=== PATIENT | female | born 1990 | race Hispanic/Latino ===

== ENCOUNTER 2018-06-01 17:40 | Emergency (ER) | payer SELFPAY ==
[~2018-06-01] VITALS: Ht 157.5 cm; Wt 95.3 kg
[2018-06-01] MEDS ORDERED: ACETAMINOPHEN 325 MG/10 ML UDC PO STA (18:49)
[2018-06-01] MEDS ORDERED: PENICILLIN G BENZATHINE LA 1.2 MU TBX IM STA (18:50)
[2018-06-01] MEDS ORDERED: DEXAMETHASONE SOD PHOS 10 MG/1 ML VIAL INH ONE (19:00)
[2018-06-01 22:06] VITALS: BP 115/77
== END 2018-06-01 22:15 | disposition home or self-care (01) ==
LOC: RESP 17:40 → ER 22:15
DX: R50.9 Fever, unspecified (principal); R11.0 Nausea; J02.0 Streptococcal pharyngitis
CPT/HCPCS: 99283; J0561; J1100

== ENCOUNTER 2021-03-02 17:53 | Emergency (ER) | payer SELFPAY ==
[~2021-03-02] VITALS: Ht 157.5 cm; Wt 95.3 kg
[2021-03-02] MEDS ORDERED: TESSALON PERLE100 MG PO (18:23)
[2021-03-02] MEDS ORDERED: OMEPRAZOLE40 MG PO (18:25)
[2021-03-02 19:59] VITALS: BP 121/72
== END 2021-03-02 20:02 | disposition home or self-care (01) ==
LOC: ER 18:11
DX: R07.89 Other chest pain (principal); J40 Bronchitis, not specified as acute or chronic; R05 Cough
CPT/HCPCS: 71045; 99283

== ENCOUNTER 2022-04-03 19:19 | Emergency (ER) | payer OTHER ==
[~2022-04-03] VITALS: Ht 157.5 cm; Wt 97.5 kg
[~2022-04-03 19:19] MED LIST: OMEPRAZOLE40 MG PO; TESSALON PERLE100 MG PO
[2022-04-03 20:52] LABS: CLARITY,URINE HAZY (CLEAR); COLOR,URINE YELLOW (YELLOW); KETONES,URINE NEGATIVE (NEGATIVE); LEUKOCYTE ESTERASE ,URINE LARGE (NEGATIVE); NITRITE,URINE NEGATIVE (NEGATIVE); PROTEIN,URINE DIPSTICK TRACE (NEGATIVE); URINE UROBILINOGEN 0.2 mg/dL (0.2 - 1)
[2022-04-03] MEDS ORDERED: KETOROLAC TROMETHAMINE 60 MG/2 ML VIAL IM ONE (21:00)
[2022-04-03] MEDS ORDERED: ORPHENADRINE CITRATE 30 MG/ML VIAL IM ONE (21:00)
[2022-04-03 21:04] LABS: AMORPHOUS SEDIMENT,URINE MODERATE (FEW); BACTERIA,URINE MODERATE /HPF; EPITHELIAL CELLS,URINE MANY /LPF; RBC,URINE 0-5 /HPF (0-5)
[2022-04-03 21:51] VITALS: BP 101/56
== END 2022-04-03 22:01 | disposition home or self-care (01) ==
LOC: ER 20:28
DX: R07.89 Other chest pain (principal); S29.012A Strain of muscle and tendon of back wall of thorax, initial encounter; S39.012A Strain of muscle, fascia and tendon of lower back, initial encounter; V43.52XA Car driver injured in collision with other type car in traffic accident, initial encounter; Y92.488 Other paved roadways as the place of occurrence of the external cause
CPT/HCPCS: 71101; 72070; 72100; 81001; 81025; 99283; J1885; J2360